=== PATIENT | female | born 1935 | race Caucasian/White ===

== ENCOUNTER 2016-12-06 16:10 | Inpatient (IN) | payer MEDICARE, BC ==
[2016-12-06 18:33] LABS: Hematocrit 36 % (35-47); Hemoglobin 12.1 g/dl (12.0-16.0); Mean Corpuscular HGB Conc 33 g/dl (31-36); Mean Corpuscular Hemoglobin 30 pg (27-31); Mean Corpuscular Volume 89 fL (80-97); Mean Platelet Volume 10 um3 (7.4-10.4); Red Blood Count 4.07 10^6/ul (4.0-5.4); Red Cell Distribution Width 15 % (10.5-15); White Blood Count 7.9 10^3/ul (3.5-10.8)
[2016-12-06 18:50] LABS: Albumin 3.7 g/dL (3.2-5.2); BUN/Creatinine Ratio 18.8 (8-20); C Reactive Protein 13.4 mg/L (< 5.00); Calcium 6.9 mg/dL (8.6-10.3); EGFR African American 38.2 (>60); EGFR Non-African American 29.7 (>60); Globulin 3.6 g/dL (2-4); Potassium 2.9 mmol/L (3.5-5.0); Total Bilirubin 7.6 mg/dL (0.2-1.0); Total Protein 7.3 g/dL (6.4-8.9)
[2016-12-06] MEDS ORDERED: NS 0.9% 1000 ML* 1,000 ML IV ONE (19:31)
[2016-12-06] MEDS: KCL 10 MEQ/50 ML IVPREMIX* 10 MEQ/50 ML BAG IV SCH ×2 (20:14→21:06)
[2016-12-06] MEDS ORDERED: Ondansetron INJ* 2 MG/ML VIAL IV PRN (20:33)
[2016-12-06] MEDS ORDERED: Potassium Chlor TAB* 20 MEQ TAB.ER PO ONE (20:37)
[2016-12-06] MEDS ORDERED: Dextrose 50% Syringe 50 ML* 25 GM/50 ML SYRINGE IV PUSH PRN (20:43)
[2016-12-06] MEDS ORDERED: NS 0.9% 1000 ML* 1,000 ML IV SCH (20:45)
[2016-12-06] MEDS ORDERED: Insulin GLARGINE(*) 1 UNITS UNIT SUBCUT SCH (21:00)
--- NOTE | 2016-12-06 22:05 | HP ---
CC: Dr. Kwong; Dr. Kingston * HISTORY AND PHYSICAL: DATE OF ADMISSION: 12/06/16 PRIMARY CARE PROVIDER: Dr. Kwong. CONSULTING CLAIMS ADMINISTRATOR: Dr. Kingston. ATTENDING PHYSICIAN: Nacho Cerna MD * (DICTATED BY DANIE HOFF NP) CHIEF COMPLAINT: Jaundice. HISTORY OF PRESENT ILLNESS: Ms. Nolasco is an 81-year-old female patient. She has a history of DANIEL. She carries a history of diabetes. She does have cor pulmonale, hypertension, hyperlipidemia. She comes in today stating over the last couple of days, she has noticed that she has been yellow and she noticed her eyes were yellow. She also noticed that her urine has been dark over the last couple of weeks. In addition to this, she has been having some otoole white type stools. She denies having any pain. She denies having any abdominal pain. She does admit to having some weight loss over the last couple of weeks, she thinks may be 5 pounds. She says the appetite has been down over the last several weeks according to the family. There has been no fevers, no chest pain or any shortness of breath. She was concerned and as was the family because of the jaundice and so they came into the ER and was evaluated. It was noted that her bilirubin was 7.6. Her alk phos and LFTs were all elevated. Because of this, we were asked to evaluate for admission. PAST MEDICAL HISTORY: Significant for: 1. DANIEL. 2. Diabetes. 3. History of pulmonary hypertension. 4. Hypertension. 5. Hyperlipidemia. 6. Hypothyroidism. PAST SURGICAL HISTORY: She has had a thyroid resection. HOME MEDICATIONS: According to her pill bottles: 1. Glipizide 10 mg p.o. b.i.d. 2. Actos 30 mg daily. 3. Prilosec 20 mg daily. 4. Synthroid 175 mcg daily. 5. Levemir, she says she taking 20 units daily, but she is unsure of that dose. We will try to clarify that tomorrow. For the time being, I will put her on Lantus 20 units. 6. Aricept 5 mg daily. 7. Vitamin D 1000 units daily. 8. Furosemide 40 mg daily. 9. Lipitor 40 mg daily. ALLERGIES TO MEDICATIONS: Include CLINDAMYCIN, PRIMIDONE, and METFORMIN. FAMILY HISTORY: Her mother had stomach cancer as did her father had cancer. SOCIAL HISTORY: She does not smoke. She does not drink. Surrogate decision maker is her daughter, Catherine. REVIEW OF SYSTEMS: There is no documented fever. She denied any big significant weight change. No double vision. No ear discharge. There is no rhinorrhea. No sore throat. No thyroid enlargement. Denied having any chest pain. There was no orthopnea, no nocturnal dyspnea. There was no abdominal pain, no nausea, no vomiting. There was no dysuria, no frequency, no seizures, no loss of consciousness. Review of 14 systems completed, all others negative. PHYSICAL EXAMINATION GENERAL: At this time, Ms. Nolasco is an 81-year-old female patient. She appears to be well nourished and well developed. She is sitting in the ER stretcher. She does not appear to be in any acute distress. VITAL SIGNS: Blood pressure 136/93, pulse 87, respirations 20, O2 sat 93%, temperature 98.4. HEENT: Head is atraumatic, normocephalic. Eyes: EOMs are intact. Sclerae again were icteric. Throat: Oral mucosa appeared to be dry. No oropharyngeal erythema. LUNGS: Clear to auscultation bilaterally. There were no wheezes, rales, or rhonchi. HEART: Sounds S1, S2. Regular rate and rhythm. No murmurs, rubs, or gallops. ABDOMEN: Soft, flat, nontender. Bowel sounds present. EXTREMITIES: Pulses 2+ throughout. She is able to move all 4 extremities with 5/5 strength. NEUROLOGIC: The patient is awake. She is alert. She is oriented x3. Tongue midline. Property Insurance Agent were equal. She had no gross focal deficits. SKIN: Grossly intact. DIAGNOSTIC STUDIES/LAB DATA: The labs today revealed WBC of 7.9, RBC of 4.07, hemoglobin of 12.1, hematocrit 36, platelet count of 179. Sodium was 139, potassium 2.9, chloride of 102, bicarb 25, BUN 31, creatinine 1.65, glucose 228 , lactic 0.8, calcium 6.9, total bili 7.6, ALT 199, alk phos 901. CRP of 13.4. Albumin 3.7, lipase 183. Urine is pending. Old medical records were reviewed. ASSESSMENT AND PLAN: Ms. Nolasco is an 81-year-old female patient presented to the ER today with complaints of jaundice. She will be admitted under observation status for: 1. Jaundice. At this point, it was concerning as this was painless jaundice and she may have a mass. She certainly has had some slight weight loss, decreased appetite. Plan is to get a CT of the abdomen and pelvis with p.o. contrast for evaluation. I did touch base with GI. We will trend her labs and we will continue to follow. She may requiring stenting but again we will wait for CT imaging. 2. Obstructive sleep apnea. I have ordered CPAP. 3. Diabetes. Lispro sliding scale. 4. History of pulmonary hypertension. We will continue her current medical regimen and follow. 5. Hypertension. We will monitor this. It is right now in the 130s. If needed, we will start medications. 6. Hyperlipidemia. I am going to hold her statin. 7. Hypothyroidism. Continue Synthroid. 8. DVT prophylaxis. High risk. Placed her on subcu. 9. Code status. She wishes to be a DNR. She said there is a DNR here in the hospital. We will try to track this down. TIME SPENT: Time spent on the admission was approximately 60 minutes; greater than half the time was spent [id number] with the patient obtaining my history and physical, other half of the time spent going over the plan of care with the patient and implementing plan of care. I did discuss the plan of care with my attending, Dr. Cerna; he is in agreement. DANIE HOFF, PEPE [id number]/[facility] #: [id number] ARVIN
--- NOTE | 2016-12-06 22:18 | RAD ---
CLINICAL HISTORY: Painless obstructive jaundice COMPARISON: October 16, 2011 TECHNIQUE: Multiple contiguous axial CT scans were obtained of the abdomen and pelvis, without intravenous contrast enhancement. Coronal and sagittal multiplanar reformations are submitted for review. Oral contrast was administered. FINDINGS: The study is limited by the lack of intravenous contrast. This limits evaluation of the solid organs and vasculature. LUNG BASES: The lung bases are clear. LIVER: There is been interval development of multiple low-attenuation hepatic parenchymal lesions. The largest measures up to 27.4 cm. BILE DUCTS: There is no intrahepatic or extrahepatic biliary dilatation. GALLBLADDER: Multiple gallstones are noted. There is no pericholecystic inflammatory change. PANCREAS: There is a 2.9 cm mass of the uncinate process of pancreas. There is dilatation the pancreatic duct with atrophy of the body and tail SPLEEN: Normal in size and appearance. UPPER GI TRACT: Evaluation of the gastrointestinal tract is limited by incomplete gastric distention. The upper GI tract is unremarkable. SMALL BOWEL AND MESENTERY: The small bowel is normal in contour, course, and caliber. There is no obstruction or dilatation. COLON: The colon is normal in contour, course, caliber. There is no pericolonic inflammatory change. ADRENALS: Normal bilaterally. KIDNEYS: The kidneys are normal in shape, size, contour, and axis. There is no hydronephrosis or nephrolithiasis. BLADDER: The bladder is incompletely distended but is grossly normal. PELVIC ORGANS: There is a cystic lesion of the left hemipelvis, stable from the previous examination. The pelvic organs are otherwise visualized. AORTA: There is calcific atherosclerotic disease of the abdominal aorta and its branches, without aneurysmal dilatation IVC: Unremarkable LYMPH NODES: There is no lymphadenopathy by size criteria. ABDOMINAL WALL: There is no evidence for abdominal wall hernia. BONES AND SOFT TISSUES: There is diffuse osteopenia. Degenerative changes are noted OTHER: None IMPRESSION: 1. THERE IS A 2.9 CM MASS OF THE UNCINATE PROCESSES OF THE PANCREAS. THERE HAS BEEN INTERVAL DEVELOPMENT OF MULTIPLE LOW-ATTENUATION HEPATIC PARENCHYMAL LESIONS CONSISTENT WITH METASTATIC DISEASE. 2. CHOLELITHIASIS. 3. STABLE LEFT OVARIAN CYST
[2016-12-06] MEDS: Heparin VIAL(*) 5000 UNITS/ML VIAL (FIVE THOUSAND) SUBCUT SCH (23:05)
[2016-12-07] MEDS ORDERED: Morphine INJ* 2 MG/ML 1 ML SYRINGE IV PRN (00:54)
--- NOTE | 2016-12-07 00:55 | ED ---
Kwan Tee Salem, scribed for Cyrus Martin MD on 12/06/16 at 1716 . Complex/Multi-Sys Presentation - HPI Summary HPI Summary: Patient is a 81 y/o F who presents to the ED with various sx for the past 3 days. Her daughters report dizziness since this morning, jaundice since the last 3 days, dark urine, white colored BM, mayen/yellowish sclera, dyspnea, vomiting, and nausea, but denies fever, CP, or losing weight. However, she states that she had abd/chest pain approximately 1 week ago. Pt denies hx of tobacco or substance use (but her was a smoker). PMHx of HLD, DM, COPD, and thyroid removal, but denies any PMHx with her gallbladder. Pt denies taking any pain medications. - History Of Current Complaint Chief Complaint: EDGeneral Hx Obtained From: Patient, Family/Rail Car Repairer Onset/Duration: Gradual Onset Timing: Intermittent, Lasting: Severity Currently: Moderate Severity Initially: Moderate Location: Negative Aggravating Factor(s): Nothing. Alleviating Factor(s): Nothing. Associated Signs And Symptoms: Positive: Dizziness, SOB, Nausea, Vomiting. Negative: Fever - Allergies/Home Medications Allergies/Adverse Reactions: Allergies Allergy/AdvReac Type Severity Reaction Status Date / Time Primidone Allergy Severe Altered Verified 11/23/14 13:06 Mental Status Clindamycin Allergy Unknown Unknown Verified 11/23/14 13:06 Reaction Details Metformin AdvReac Intermediate Diarrhea Verified 11/23/14 13:06 Home Medications: Home Medications Cholecalciferol [Vitamin D] 1,000 unit PO DAILY 12/06/16 [History Confirmed 06/12] Donepezil TAB* [Aricept 5 MG TAB*] 5 mg PO DAILY 12/06/16 [History Confirmed 06/12] Levemir (NF) 0 units SUBCUT DAILY 12/06/16 [History Confirmed 12/06/16] Pioglitazone HCl 30 mg PO DAILY 12/06/16 [History Confirmed 12/06/16] PMH/Surg Hx/FS Hx/Imm Hx Endocrine/Hematology History: Reports: Hx Diabetes, Hx Thyroid Disease - thyroidectomy Cardiovascular History: Reports: Hx Congestive Heart Failure, Hx Deep Vein Thrombosis, Hx Hypercholesterolemia, Hx Hypertension, Other Cardiovascular Problems/Disorders - right ventricular enlargement, dilated pulmonary artery Denies: Hx Angina, Hx Coronary Artery Disease, Hx Myocardial Infarction, Hx Pacemaker/ICD, Hx Valvular Heart Disease Respiratory History: Reports: Hx Chronic Obstructive Pulmonary Disease (COPD), Hx Sleep Apnea, Other Respiratory Problems/Disorders - pulmonary hypertension GI History: Reports: Other GI Disorders - hx colon polyps Musculoskeletal History: Reports: Hx Osteoporosis, Other Musculoskeletal History - LE edema Sensory History: Reports: Hx Contacts or Glasses Denies: Hx Hearing Aid Opthamlomology History: Reports: Hx Contacts or Glasses Psychiatric History: Denies: Hx Panic Disorder - Cancer History Hx Chemotherapy: No Hx Radiation Therapy: No - Surgical History Surgery Procedure, Year, and Place: THYROID, OVARY REMOVED, HYSTERECTOMY Infectious Disease History: No Infectious Disease History: Denies: Traveled Outside the [place] in Last 30 Days - Family History Known Family History: Positive: Other - Tumor - mother. - Social History Alcohol Use: None Hx Substance Use: No Substance Use Type: Reports: None Hx Tobacco Use: No Smoking Status (MU): Never Smoked Tobacco Have You Smoked in the Last Year: No Review of Systems Positive: Other - Jaundice. No losing weight. . Negative: Fever, Chills Positive: Other - Mayen/yellowish sclera. . Negative: Erythema Negative: Sore Throat Positive: Chest Pain - 1 wk ago. Positive: Shortness Of Breath. Negative: Cough Positive: Abdominal Pain - 1 wk ago. , Vomiting, Nausea Positive: other - Dark urine. White BM. . Negative: dysuria, hematuria Negative: Myalgia, Edema Negative: Rash Neurological: Other - Dizziness. All Other Systems Reviewed And Are Negative: Yes Physical Exam - Summary Physical Exam Summary: Constitutional: Well-developed, Well-nourished, Alert. (-) Distressed Skin: Warm, Dry. Jaundice. HENT: Normocephalic; Atraumatic Eyes: Sclera jaundice. Neck: Musculoskeletal ROM normal neck. (-) JVD, (-) Stridor, (-) Tracheal deviation Cardio: Rhythm regular, rate normal, Heart sounds normal; Intact distal pulses; The pedal pulses are 2+ and symmetric. Radial pulses are 2+ and symmetric. (-) Murmur Pulmonary/Chest wall: Effort normal. (-) Respiratory distress, (-) Wheezes, (-) Rales Abd: Soft, (-) Tenderness, (-) Distension, (-) Guarding, (-) Rebound Musculoskeletal: (-) Edema Lymph: (-) Cervical adenopathy Neuro: Alert, Oriented x3 Psych: Mood and affect Normal Triage Information Reviewed: Yes Vital Signs On Initial Exam: Initial Vitals Temp Pulse Resp BP Pulse Ox 98.4 F 88 20 136/93 93 12/06/16 16:15 12/06/16 16:15 12/06/16 16:15 12/06/16 16:15 12/06/16 16:15 Vital Signs Reviewed: Yes Diagnostics - Vital Signs Vital Signs Temp Pulse Resp BP Pulse Ox 12/06/16 16:18 98.4 F 87 20 136/93 93 12/06/16 16:15 98.4 F 88 20 136/93 93 - Laboratory Result Diagrams: 12/06/16 18:25 12/06/16 18:25 Lab Statement: Any lab studies that have been ordered have been reviewed, and results considered in the medical decision making process. - CT ABD/PELVIS CT Interpretation Completed By: Radiologist - IMPRESSION: 1. THERE IS A 2.9 CM MASS OF THE UNCINATE PROCESSES OF THE PANCREAS. THERE HAS BEEN INTERVAL DEVELOPMENT OF MULTIPLE LOW-ATTENUATION HEPATIC PARENCHYMAL LESIONS CONSISTENTWITH METASTATIC DISEASE. 2. CHOLELITHIASIS. 3. STABLE LEFT OVARIAN CYST - Ultrasound No standard instances Ultrasound Interpretation Completed By: Radiologist - IMPRESSION: see EMR pending. Re-Evaluation - Re-Evaluation First Eval Re-Evaluation Time: 20:52 Comment: Pt reports abd pain that resolved. Abd nontender upon re-examination. Complex Multi-Symp Course/Dx Course Of Treatment: 81 y/o F presents with multiple complaints for the past 3 days. Family reports dizziness since this morning, jaundice since the last 3 days, dark urine, white colored BM, mayen/yellowish sclera, dyspnea, vomiting, and nausea, but denies fever, CP, or losing weight. However, she states that she had abd/chest pain approximately 1 week ago. Pt received fluids in ED course. Pt will be admitted for further eval. - Diagnoses Provider Diagnoses: Obstructive jaundice - Physician Notifications Discussed Care Of Patient With: Nacho Cerna Time Discussed With Above Provider: 20:01 Instructed by Provider To: Admit As Inpatient Admit/Transition Orders Completed By ED Provider: Yes Discharge - Discharge Plan Condition: Stable Disposition: ADMITTED TO [facility] documentation as recorded by the scribKwan toribio Salem accurately reflects the service I personally performed and the decisions made by me, Cyrus Martin MD.
[2016-12-07] MEDS: Heparin VIAL(*) 5000 UNITS/ML VIAL (FIVE THOUSAND) SUBCUT SCH ×3 (05:44→22:10)
[2016-12-07] MEDS: Levothyroxine TAB* 100 MCG TAB PO SCH (05:45)
[2016-12-07] MEDS: Levothyroxine TAB* 75 MCG TAB PO SCH (05:45)
[2016-12-07 07:01] LABS: Hematocrit 33 % (35-47); Hemoglobin 11.1 g/dl (12.0-16.0); Mean Corpuscular HGB Conc 34 g/dl (31-36); Mean Corpuscular Hemoglobin 30 pg (27-31); Mean Corpuscular Volume 89 fL (80-97); Mean Platelet Volume 10 um3 (7.4-10.4); Red Blood Count 3.69 10^6/ul (4.0-5.4); Red Cell Distribution Width 15 % (10.5-15); White Blood Count 7.4 10^3/ul (3.5-10.8)
[2016-12-07 07:24] LABS: Albumin 3.3 g/dL (3.2-5.2); BUN/Creatinine Ratio 19.7 (8-20); EGFR African American 45.4 (>60); EGFR Non-African American 35.3 (>60); Potassium 3.4 mmol/L (3.5-5.0); Total Bilirubin 6.7 mg/dL (0.2-1.0); Total Protein 6.3 g/dL (6.4-8.9)
[2016-12-07 07:28] LABS: Calcium 6.4 mg/dL (8.6-10.3)
[2016-12-07] MEDS: Insulin LISPRO* 1 UNITS UNIT SUBCUT SCH ×3 (08:26→21:38)
[2016-12-07] MEDS: Donepezil TAB* 5 MG PO SCH (08:42)
[2016-12-07] MEDS: Omeprazole CAP* 20 MG PO SCH (08:42)
--- NOTE | 2016-12-07 13:41 | PN ---
Subjective Date of Service: 12/07/16 Interval History: Seen and examined on multiple occasions throughout the day with family at bedside Pt without pain, no N/V, LH, CP, SOB Hungry but currently NPO for possible ERCP Discussed dx of possible cancer based on CT imaging with pt and family Objective Active Medications: Dextrose (D50w Syringe 50 Ml*) 12.5 gm IV PUSH .FOR FS < 60 - SS PRN PRN Reason: FS < 60 Donepezil HCl (Aricept Tab*) 5 mg PO DAILY [facility] Last Admin: 12/07/16 08:42 Dose: 5 mg Heparin Sodium (Porcine) (Heparin Vial(*)) 5,000 units SUBCUT Q8HR [facility] Last Admin: 12/07/16 13:26 Dose: Not Given Insulin Glargine (Lantus(*)) 15 units SUBCUT Q24H [facility] Insulin Human Lispro (Humalog*) 0 units SUBCUT AC JUVENTINO PRN Reason: Protocol Last Admin: 12/07/16 13:25 Dose: Not Given Levothyroxine Sodium (Synthroid Tab*) 100 mcg PO DAILY@0600 [facility] Last Admin: 12/07/16 05:45 Dose: 100 mcg Levothyroxine Sodium (Synthroid Tab*) 75 mcg PO DAILY@0600 [facility] Last Admin: 12/07/16 05:45 Dose: 75 mcg Omeprazole (Prilosec Cap*) 20 mg PO DAILY [facility] Last Admin: 12/07/16 08:42 Dose: 20 mg Ondansetron HCl (Zofran Inj*) 4 mg IV Q6H PRN PRN Reason: NAUSEA Oxygen Devices in Use Now: Nasal Cannula Appearance: sitting up in bed, NAD Eyes: - - +scleral icterus Ears/Nose/Mouth/Throat: Clear Oropharnyx Neck: NL Appearance and Movements; NL JVP, Trachea Midline Respiratory: Symmetrical Chest Expansion and Respiratory Effort, Clear to Auscultation Cardiovascular: RRR Abdominal: NL Sounds; No Tenderness; No Distention, No Hepatosplenomegaly Lymphatic: No Cervical Adenopathy Extremities: No Edema Skin: No Rash or Ulcers Neurological: - - AOx2 to self and location, trouble repeating our conversation back to Dr. Morris later in the day Result Diagrams: 12/07/16 06:24 12/07/16 06:24 Assess/Plan/Problems-Billing Assessment: 81 F h/o severe DANIEL not compliant CPAP, pHTN, CKD, IDDM p/w painless jaundice found with CT evidence pancreatic cancer - Patient Problems (1) Pancreatic cancer Comment: Suspected based on CT With suspected mets to liver obstructing pancreatic duct plan on ERCP with Dr. Kingston Discussed increased risk given known pHTN and RV dysfunction. Unable to quantify level of increased risk and family and pt would like to proceed with ERCP knowing risks. Lifespan likely measured in weeks without ERCP. (2) CKD (chronic kidney disease) Comment: stable (3) DANIEL (obstructive sleep apnea) Comment: CPAP Consider extubation to CPAP after ERCP (4) Pulmonary hypertension Comment: suspect type 3 in settikng of DANIEL. History of likely also contibuting (5) DVT prophylaxis Comment: scds. Holding AC prior to ERCP
[2016-12-07] MEDS ORDERED: Etomidate* 2 MG/ML 10 ML VIAL ONE (15:32)
[2016-12-07] MEDS ORDERED: Lidocaine 2% PF * 5 ML VIAL ONE ×2 (15:32→17:47)
[2016-12-07] MEDS ORDERED: Succinylcholine* 20 MG/ML 10 ML VIAL ONE (15:32)
[2016-12-07] MEDS ORDERED: Buffered Lidocaine 0.9% SYRIN* 5 ML/SYR SYRINGE ONE (15:38)
[2016-12-07] MEDS ORDERED: Dextrose 50% Syringe 50 ML* 25 GM/50 ML SYRINGE ONE (16:11)
[2016-12-07] MEDS ORDERED: Dextrose 50% Syringe 50 ML* 25 GM/50 ML SYRINGE IV PUSH ONE (16:21)
--- NOTE | 2016-12-07 17:19 | CONS ---
GASTROENTEROLOGY CONSULTATION DATE: 12/07/16 - ROOM #410 CONSULTING PHYSICIANS: Bruno Kwong, and James Morris REASON FOR CONSULTATION: Painless jaundice with pancreatic mass in the uncinate and dilation of intrahepatic ducts. HISTORY: This 81-year-old woman with right-sided CHF, obstructive sleep apnea, and longstanding diabetes just started feeling a little more fatigued. She lost her appetite over a couple of weeks and has lost about 5 pounds and seemed to be weaker. She was noticed to be jaundiced and her stools were superintendent terminal in color and she came to the emergency room. Here she was found to have a bilirubin of about 7 and an elevated alkaline phosphatase. The CT showed a pancreatic head mass and some minimal dilation of the pancreatic duct. PAST MEDICAL HISTORY: 1. Chronic pulmonary disease. 2. Obstructive sleep apnea. 3. Pulmonary hypertension and valve insufficiency. 4. Hypothyroidism. 5. Essential tremor. 6. Early dementia. 7. History of pulmonary embolism, 2015. 8. Obesity. MEDICATIONS: Omeprazole 20, glipizide 10 mg b.i.d., levothyroxine 175, atorvastatin 40, primidone 50, insulin 100, Aricept 5. ALLERGIES: METFORMIN and CLINDAMYCIN have given her diarrhea. SOCIAL HISTORY: She lives with her daughter. She has been incontinent of stool recently. She has been a full code. REVIEW OF SYSTEMS: No history of [place], arrhythmia, syncope, bleeding while on warfarin, rectal bleeding, chronic skin condition, seizure, psoriasis, ulcerative colitis, hepatitis, recent fractures. EXAM: She is a chronically ill elderly woman, able to lie flat in no overt distress. She is mildly icteric. She has no adenopathy. Breath sounds are diminished symmetrically. Heart sounds are regular, somewhat distant and muffled. The abdomen is obese with normal bowel sounds, soft, and without focal tenderness. Rectal: Deferred. Extremities show 2+ pitting edema. Neurologic shows she is rather vague and defers to her family members to answer questions, but she is oriented to person and place. Cranial nerves are intact. She moves all 4 extremities. Gait was not tested. IMAGING REVIEW: CT shows dilated common duct ending at the pancreas on coronal images 63 and 64 of 156. There are new liver hypodense masses IMPRESSION: This 81-year-old woman with severe right-sided cardiac disease now presents with painless jaundice. There is a mass on CT and dilated ducts that fits clinical presentation most likely we are dealing with a pancreatic head cancer. There are apparent metastases in the liver on the CT (new since a prior CT 3 years ago) and at this time placement of a palliative stent is anticipated. [id number]/[facility] #: [id number] MTDD
[2016-12-07] MEDS ORDERED: fentaNYL* 50 MCG/ML 2 ML VIAL (100 MCG VIAL) ONE (17:47)
[2016-12-07] MEDS ORDERED: EPHEDrine (Pressors)* 50 MG/ML VIAL ONE (17:49)
[2016-12-07] MEDS ORDERED: Piperacillin/Tazobactam VIAL*) 3.375 GM VIAL (COMPD & OVERRIDE) ONE (18:35)
--- NOTE | 2016-12-07 19:56 | RAD ---
INDICATION: Pancreatic mass COMPARISONS: CT dated December 06, 2016 TECHNIQUE: Fluoroscopy was provided for ERCP. Total fluoroscopy time is: 47 seconds FINDINGS: Spot images demonstrate contrast within the biliary system. A biliary stent is noted. IMPRESSION: FLUOROSCOPY WAS PROVIDED FOR ERCP CPT II Codes: 6045F
[2016-12-07] MEDS ORDERED: Insulin GLARGINE(*) 1 UNITS UNIT SUBCUT SCH (21:00)
--- NOTE | 2016-12-07 21:28 | CONS ---
CC: Dr. Kingston; Dr. Kwong; Dr. Morris * MEDICAL ONCOLOGY CONSULTATION NOTE: DATE OF ADMISSION: 12/06/16 DATE OF CONSULT: 12/07/16 REASON FOR CONSULT: Likely pancreatic cancer stage IV presenting with jaundice. HISTORY OF PRESENT ILLNESS: Ms. Nolasco is an 81-year-old female with underlying diabetes mellitus dating back at least several years along with cor pulmonale. She and her family report that even 2 months ago, she became less active, essentially almost totally housebound. Her mobility has decreased, which is somewhat related to her arthritis and her memory loss has also progressed recently. She recognizes family but forgets words and sometimes ask questions repeatedly. She has been fatigued over the last couple of weeks. Her appetite has been down and she has lost approximately 5 pounds. She denies any abdominal pain. She has become increasingly jaundiced recently. Her urine has become dark and her stool light over the past 1 to 2 weeks. She denies any abdominal pain. She has had no associated signs of infection. She was brought into the emergency room where she was found to have an elevated bilirubin at 7.6 along with abnormal transaminases and alk phos. CT scan without IV contrast was obtained and reveals multiple liver metastases. In addition, there is a 2 cm pancreatic head mass and dilatation of the pancreatic duct. PAST MEDICAL HISTORY: 1. Obstructive sleep apnea, using CPAP at home. 2. Diabetes mellitus type 2 for several years, on oral medications. 3. History of cor pulmonale. 4. Hypertension. 5. Hypothyroidism. 6. Sngv-of-kxkeqyqc dementia. 7. History of pulmonary embolism in 2015. 8. Status post thyroid resection. No other surgeries. No history of CVA or WA. MEDICATIONS AT HOME: Prior to admission included: 1. Glipizide 10 mg b.i.d. 2. Actos 30 mg daily. 3. Prilosec 20 mg daily. 4. Synthroid 175 mcg daily. 5. Aricept 5 mg daily. 6. Vitamin D. 7. Furosemide 40 mg daily. 8. Lipitor 40 mg daily. 9. Levemir insulin, unclear as to dose. ALLERGIES TO MEDICATIONS: None. Metformin, clindamycin, and primidone have caused GI changes. FAMILY HISTORY: Multiple family members with cancer. One sister of undetermined cancer, another sister is alive with breast cancer. She believes that both her parents had cancer. This was discussed at length with the patient 's son and daughter, named Fabiola and Feng, who will try to get us further family information. SOCIAL HISTORY: The patient is not drinker or a smoker. She lives with her daughter in [place]. REVIEW OF SYSTEMS: No associated fever. No significant shortness of breath or chest pain. No significant orthopnea. No significant palpitations. No significant changes in bowel or bladder habits. Review of systems otherwise negative except as discussed above. PHYSICAL EXAM: An 81-year-old female in no acute distress, lying comfortably on the bed in the hospital room. Vital Signs: Blood pressure 105/56, pulse 77 , afebrile. HEENT: Marked scleral icterus. No erythema or exudates. Extraocular motions are intact. Lungs: Clear. Heart: Regular rate and rhythm. 2/6 systolic murmur. Abdomen: Soft, nontender without masses or organomegaly. Normoactive bowel sounds. Extremities: Trace pitting edema bilaterally. Neurologic Exam: The patient is oriented to person, to hospital and to year, but not to month or date. When asked if she rightly recalls what informations and passed on to earlier this admission, she declines to comment not seeming to understand what she has been told and defers to her family. Family reports that she has had significant memory issues recently, which have been progressive. DIAGNOSTIC STUDIES/LAB DATA: CBC with a white count of 7400, hematocrit 33, hemoglobin 11.1, platelet count 141,000, with an essentially normal differential. Chemistry Studies: Sodium 139, potassium 3.4, chloride 109, bicarb 21, BUN 28, creatinine 1.42, which is better than admission and not too terribly far off from her baseline in the past several years in terms of renal function. Bilirubin 7.6 on admission and currently 6.7 and having been normal 2 years ago. Transaminases; AST 241, ALT 186, alk phos 775, lipase elevated at 213. Albumin normal at 3.3. CT scan reveals, a noncontrast scan, multiple lesions in the liver. There is no significant adenopathy. There is a 2.9 cm mass in the uncinate process of the pancreas along with some dilation of the pancreatic duct and atrophy of the body of the tail of the pancreas. IMPRESSION: High likelihood of this being metastatic pancreatic adenocarcinoma. Multiple options were discussed with the patient and with her son, Jameson and her daughter, Catherine. 1. First option would be palliative care alone with no stent and no further chemotherapy. If this route were elected, her life expectancy would be extremely short probably measured in just a matter of no more than a few weeks. 2. Second option was to place a stent and then to provide palliative care thereafter. In this situation, it is likely that life expectancy would be measured in no more than a few months, but hopefully progressive symptoms such as significant pruritus, nausea and vomiting, and potential infections could be either averted or delayed. 3. Third option would be for placing of the stent and if further functions improve then to go on to palliative chemotherapy. Given her age and overall physical and mental status, I would not recommend aggressive chemotherapy such as Gemzar, Abraxane or FOLFIRINOX, instead single agent Gemzar would be elected. If this were to be used as the median survival, would still be measured in approximately 6 months with approximately 20% of patients to be alive at a year versus 2% in patients with metastatic pancreatic cancer not receiving chemotherapy. This was explained at length to the patient, her son, and her daughter. There is no role for radiation and that there is no role for surgery given likelihood of metastatic disease. If she were to undergo the stent it is likely we receive the pathologic confirmation of a metastatic pancreatic cancer. It was explained to the patient and she and her family need to decide today whether to proceed with a stent as this could be performed today by Dr. Kingston. However, decision on further potential therapy such as chemotherapy could certainly be delayed and does not need to be obtained today. Given her overall status, I would certainly not push her to have chemotherapy. I would leave it as an option on the table if her liver function test would improve following placement of a biliary stent. The patient and her family are well aware that any therapy we give is palliative and that she is likely to continue to progress in a matter of months or less no matter what options are elected. [id number]/[facility] #: [id number] [facility]
[2016-12-07] MEDS ORDERED: Potassium Chlor TAB* 20 MEQ TAB.ER PO ONE (21:31)
[2016-12-07] MEDS: Nystatin TOP POWDER* 15 GM BTL TOPICAL SCH ×2 (22:13)
[2016-12-08 02:38] LABS: Urine Bacteria 1+ (Absent); Urine Bilirubin Negative (Negative); Urine Glucose Negative (Negative); Urine Nitrite Negative (Negative)
[2016-12-08] MEDS: Nystatin TOP POWDER* 15 GM BTL TOPICAL SCH ×3 (05:00→16:21)
[2016-12-08] MEDS: Levothyroxine TAB* 75 MCG TAB PO SCH (06:27)
[2016-12-08] MEDS: Levothyroxine TAB* 100 MCG TAB PO SCH (06:27)
[2016-12-08] MEDS: Heparin VIAL(*) 5000 UNITS/ML VIAL (FIVE THOUSAND) SUBCUT SCH ×2 (06:31→13:22)
[2016-12-08] MEDS: Insulin LISPRO* 1 UNITS UNIT SUBCUT SCH ×3 (08:48→16:34)
[2016-12-08] MEDS: Omeprazole CAP* 20 MG PO SCH (09:15)
[2016-12-08] MEDS: Donepezil TAB* 5 MG PO SCH (09:15)
--- NOTE | 2016-12-08 12:09 | PRO ---
DATE: 12/07/16 - ROOM #[id number] REFERRING PHYSICIAN: Bruno Kwong MD * PROCEDURE: ERCP with sphincterotomy, brushing common bile duct stricture and stenting with 6-cm WALLSTENT. INDICATION: This 81-year-old woman presented with painless jaundice. CT scan showed an uncinate area mass and dilated ducts. Informed consent was obtained with 3 siblings in the room and discussing the situation with the patient assisted by a diagram. ENDOSCOPIST: Dr. Kingston. ANESTHESIA: Manav Dent MD. FINDINGS: She is a somewhat frail, morbidly-obese woman in no overt distress, though she is jaundiced and a little bit breathless. ERCP: Esophagus - 30% views are normal. Stomach - 50% views are unremarkable. The pylorus was easily traversed. Duodenum - generally normal mucosa and contours, though the capacity of the duodenal sweep seemed a little bit small. Papilla - unremarkable with no bile discharging. A sphincterotome was placed at the papilla. A guidewire on first passage seemed to go in the pancreatic direction, going to a slightly more cephalad direction. The guidewire went up towards the liver and the sphincterotome followed and was used to progressively orient the guidewire towards the liver. Clearly, intrahepatic cannulation was accomplished. Little bit of dye was injected and this was above the stricture. Guidewire was locked in place and injection done as the sphincterotome was gradually withdrawn outlining stricture fairly low in the common duct. Sphincterotomy was done at 8 or 9 mm in a orientation. There was no bleeding. was made for a brush and brushing taken from the area of the stricture. Some bile was seen to be discharging on account of these manipulations that presumably had loosened up some inspissated mucus. A 6-cm WALLSTENT was then placed in standard fashion and there was immediate flow of bile. Three or four "diamonds" were present in the duodenal lumen. A good discharge of bile was observed. Procedure was ended. No complications had obviously occurred. IMPRESSION: 1. Distal common bile duct stricture - brushed and now stented and her clinical course will dictate whether palliative single-agent chemotherapy is possible. [id number]/[facility] #: [id number] [facility]
[2016-12-08] MEDS ORDERED: Magnesium Sulfate 2 GM IV* 2 GM/50 ML BAG IVPB ONE (13:23)
[2016-12-08 15:05] LABS: Albumin 3.3 g/dL (3.2-5.2); Calcium 7.1 mg/dL (8.6-10.3); Direct Bilirubin 1.8 mg/dL (0.03-0.18); EGFR African American 64.4 (>60); EGFR Non-African American 50.1 (>60); Globulin 3.2 g/dL (2-4); Indirect Bilirubin 1.5 mg/dL (0.3-1.0); Potassium 3.4 mmol/L (3.5-5.0); Total Bilirubin 3.3 mg/dL (0.2-1.0); Total Protein 6.5 g/dL (6.4-8.9)
[2016-12-08] MEDS ORDERED: Potassium Chlor TAB* 20 MEQ TAB.ER PO ONE (15:52)
[2016-12-08 18:17] VITALS: BP 115/47
[2016-12-08] MEDS ORDERED: Ondansetron ODT TAB* 4 MG PO PRN (19:03)
--- NOTE | 2016-12-09 06:27 | DS ---
CC: Dr. Kwong; James Morris MD * DISCHARGE SUMMARY: DATE OF ADMISSION: 12/06/16 DATE OF DISCHARGE: 12/08/16 PRIMARY CARE PHYSICIAN: Dr. Kwong PRIMARY DIAGNOSIS: Pancreatic mass suspected to be a pancreatic cancer with metastasis to the liver. SECONDARY DIAGNOSES: Include: 1. Dementia. 2. Severe obstructive sleep apnea. 3. Diabetes. 4. Pulmonary hypertension. 5. Hypertension. 6. Hyperlipidemia. 7. Hypothyroidism. 8. Acute kidney injury. PROCEDURE PERFORMED DURING THE HOSPITAL STAY: ERCP, sphincterotomy, and stent placement in the distal common bile duct, performed on 12/07/16. DISCHARGE MEDICATIONS: 1. Glipizide 10 mg twice daily. 2. Pioglitazone 30 mg daily. 3. Prilosec 20 mg daily. 4. Synthroid 175 mcg daily. 5. Levemir 15 units daily. 6. Furosemide 40 mg daily. 7. Aricept 5 mg daily. 8. Vitamin D 1000 units daily. 9. Atorvastatin 40 mg daily. 10. Zofran 4 mg every 4 hours as needed for nausea. PERTINENT LABORATORY DATA: Total bilirubin 7.6 on presentation, decreased to 3.3 on discharge with sphincterotomy and common bile duct stent. Creatinine on presentation 1.65, on discharge 1.04. PERTINENT IMAGING DURING HOSPITAL STAY: CT abdomen and pelvis, impression: There is a 2.9 cm mass off the uncinate process of the pancreas. There has been interval development of multiple low attenuation hepatic parenchymal lesions consistent with metastatic disease. HISTORY OF PRESENT ILLNESS AND HOSPITAL COURSE: This is an 81-year-old female with past medical history as outlined in the history of present illness, on the date of admission presented to the hospital after noticing yellowing of her skin. She was seen in conjunction with Dr. Kingston who performed ERCP with placement of a common bile stent as indicated above and improvement in her total bilirubin, although not a transaminitis, suspected to be in the setting of metastatic disease. The patient was asymptomatic on presentation as well on discharge. She did have 1 episode of nausea and vomiting prior to discharge, while she was discharged home with Zofran. She was seen in conjunction with multiple family members, all of who wished to pursue a hospice approach. She will be discharged to follow up with hospice to do evaluation in home. This is discussed with Lily Santizo, our palliative social work specialist. The patient and family are in agreement with this plan. There are no other complications during this patient's hospital stay. Reasons to return to the hospital include but not limited to recurrent or worsening symptoms including uncontrolled symptom management at home while on hospice services. Greater than 75 minutes was spent on the discharge of patient, greater than half was spent [id number] with the patient and her family, providing discharge instructions as well as qmyz-qa-lope counseling. [id number]/[facility] #: [id number] [facility]
== END 2016-12-08 19:30 | disposition home or self-care (01) | DRG 436 ==
LOC: ED 16:10 → MED 20:30 → OBSVTOIN 12-07 11:30
PROVIDERS: ADMIT Hospitalist; ATTEND Internal Medicine
PROC: 0FB98ZX Excision of Common Bile Duct, Via Natural or Artificial Opening Endoscopic, Diagnostic (ICD-10-PCS; 2016-12-07)
PROC: 5A09357 Assistance with Respiratory Ventilation, Less than 24 Consecutive Hours, Continuous Positive Airway Pressure (ICD-10-PCS; 2016-12-07)
PROC: 0F798DZ Dilation of Common Bile Duct with Intraluminal Device, Via Natural or Artificial Opening Endoscopic (ICD-10-PCS; principal; 2016-12-07 14:15)
DX: C25.9 Malignant neoplasm of pancreas, unspecified (principal); C78.7 Secondary malignant neoplasm of liver and intrahepatic bile duct; N17.9 Acute kidney failure, unspecified; E11.22 Type 2 diabetes mellitus with diabetic chronic kidney disease; I13.0 Hypertensive heart and chronic kidney disease with heart failure and stage 1 through stage 4 chronic kidney disease, or unspecified chronic kidney disease; F03.90 Unspecified dementia, unspecified severity, without behavioral disturbance, psychotic disturbance, mood disturbance, and anxiety; I50.9 Heart failure, unspecified; Z68.41 Body mass index [BMI] 40.0-44.9, adult; E78.5 Hyperlipidemia, unspecified; J44.9 Chronic obstructive pulmonary disease, unspecified; E89.0 Postprocedural hypothyroidism; E78.00 Pure hypercholesterolemia, unspecified; G47.33 Obstructive sleep apnea (adult) (pediatric); I27.2 Other secondary pulmonary hypertension; M81.0 Age-related osteoporosis without current pathological fracture; I27.81 Cor pulmonale (chronic); N18.9 Chronic kidney disease, unspecified; G25.0 Essential tremor; M19.90 Unspecified osteoarthritis, unspecified site; R11.2 Nausea with vomiting, unspecified; E66.01 Morbid (severe) obesity due to excess calories; Z88.1 Allergy status to other antibiotic agents; Z88.8 Allergy status to other drugs, medicaments and biological substances; Z90.710 Acquired absence of both cervix and uterus; Z90.721 Acquired absence of ovaries, unilateral; Z86.718 Personal history of other venous thrombosis and embolism; Z86.010 Personal history of colon polyps; Z80.0 Family history of malignant neoplasm of digestive organs; Z80.9 Family history of malignant neoplasm, unspecified; Z80.3 Family history of malignant neoplasm of breast
CPT/HCPCS: 36415; 74176; 74328; 80048; 80053; 80076; 81003; 81015; 83605; 83690; 83735; 85025; 85610; 85730; 86140; 86301; 87086; 88112; 94660; 94760; A9270-GY; C1769; C1874; G0378; J0330; J0610; J1644; J2405; J2543; J3010; J3480